=== PATIENT | female | born 1960 | race Caucasian/White ===

== ENCOUNTER → 2017-01-30 | Outpatient (CLI) | payer BC | LOC: LABNPT 12:56 | PROVIDERS: ATTEND Otolaryngology Otolaryngology/Facial Plastic Surgery | DX: H92.12 Otorrhea, left ear (principal) | CPT/HCPCS: 87070; 87186 ==

== ENCOUNTER 2018-09-19 11:00 | Outpatient (CLI) | payer BC ==
[~2018-09-19] VITALS: Ht 160 cm; Wt 59.0 kg
[2018-09-19] MEDS ORDERED: SUCR1TAB PO (11:27)
[2018-09-19] MEDS ORDERED: FLUO20TA28 PO (11:27)
[2018-09-19] MEDS ORDERED: PANT40TA3 PO (11:27)
[2018-09-19] MEDS ORDERED: TPR25T PO (11:27)
== END 2018-09-19 11:29 | disposition home or self-care (01) ==
LOC: PREOP 11:00
PROVIDERS: ATTEND Otolaryngology Otolaryngology/Facial Plastic Surgery
DX: Z01.818 Encounter for other preprocedural examination (principal)

== ENCOUNTER 2018-09-22 06:42 | Day surgery (SDC) | payer BC ==
[~2018-09-22] VITALS: Ht 160 cm; Wt 61.2 kg
[2018-09-22] VITALS (10 sets, daily range): BP systolic 82–111; BP diastolic 36–68
[~2018-09-22 06:42] MED LIST: FLUO20TA28 PO; PANT40TA3 PO; SUCR1TAB PO; TPR25T PO
[2018-09-22] MEDS ORDERED: LACTATED RINGERS 1,000 ML IV PRN (06:48)
--- NOTE | 2018-09-22 07:02 | Progress Note-Pre Operative ---
Pre-Operative Progress Note H&P Reviewed The H&P was reviewed, patient examined and no changes noted. Date Seen by Provider: September 22, 2018 Time Seen by Provider: 06:30 Date H&P Reviewed: September 22, 2018 Time H&P Reviewed: 06:30 Pre-Operative Diagnosis: JESSIE Coburn MD September 22, 2018 07:02
[2018-09-22] MEDS ORDERED: MIDAZOLAM 2 MG/2 ML (VERSED) VIAL ONE (08:01)
[2018-09-22] MEDS ORDERED: fentaNYL INJECTION 100 MCG/2 ML AMP ONE (08:01)
[2018-09-22] MEDS ORDERED: DEXAMETHASONE 10 MG/ML (DECADRON) 1 ML VIAL ONE (08:01)
[2018-09-22] MEDS ORDERED: ONDANSETRON 4 MG/2 ML (SDV) Z0FRAN ONE (08:01)
[2018-09-22] MEDS ORDERED: proPOfol 200 MG/20 ML (DIPRIVAN) VIAL IV ONE (08:01)
[2018-09-22] MEDS ORDERED: LIDOCAINE PF 2% 5 ML (XYLOCAINE) VIAL ONE (08:01)
[2018-09-22] MEDS ORDERED: SEVOFLURANE (ULTANE) 15 ML INHAL SOLN ONE (08:22)
--- NOTE | 2018-09-22 08:30 | Progress Note-Post Operative ---
Post-Operative Progess Note Surgeon (s)/Job Trainer (s) Surgeon JESSIE VINCENT MD Job Trainer n/a Pre-Operative Diagnosis Bilat CALI Post-Operative Diagnosis same Post-Op Procedure Note Date of Procedure: September 22, 2018 Name of Procedure Performed: BMT Description & Findings Description and Findings: n/a Anesthesia Type mask Estimated Blood Loss minimal Packing none. Specimen(s) collected/removed none JESSIE VINCENT MD September 22, 2018 08:30
[2018-09-22] MEDS ORDERED: APAP 325 MG/10.15 ML LIQ (TYLENOL) UDC PO PRN (08:45)
[2018-09-22] MEDS ORDERED: ONDANSETRON 4 MG/2 ML (SDV) Z0FRAN IVP PRN (08:45)
[2018-09-22] MEDS ORDERED: morphine INJ 10 MG/ML 1ML (SYR OR VIAL) IVP ONE (08:45)
[2018-09-22] MEDS ORDERED: GARAMYCIN EACH EAR (09:48)
--- NOTE | 2018-09-22 10:09 | NUR ---
Pt. prescription called into [facility] [place] at this time.
--- NOTE | 2018-09-22 16:23 | Anesthesia-General Post-Op ---
General Patient Condition Mental Status/LOC: Same as Preop Cardiovascular: Satisfactory Nausea/Vomiting: Absent Respiratory: Satisfactory Pain: Controlled Complications: Absent Post Op Complications Complications None Follow Up Care/Instructions Patient Instructions None needed. Anesthesia/Patient Condition Patient Condition Patient was seen this morning after the procedure and she was doing well, no complaints, stable vital signs, no apparent adverse anesthesia problems. GUERLINE DWYER DO September 22, 2018 16:23
== END 2018-09-22 10:10 | disposition home or self-care (01) ==
LOC: SDC 06:42
PROVIDERS: ATTEND Otolaryngology Otolaryngology/Facial Plastic Surgery
DX: H65.23 Chronic serous otitis media, bilateral (principal); R51 Headache; Z79.899 Other long term (current) drug therapy
CPT/HCPCS: 87081

== ENCOUNTER → 2019-01-23 | Outpatient (CLI) | payer BC ==
[~2019-01-23] MED LIST changes: +GARAMYCIN EACH EAR
--- NOTE | 2019-01-23 10:14 | Diagnostic Imaging Report ---
INDICATION: Right hand pain. Time of exam 10:00 a.m. FINDINGS: Three views of the right hand were obtained. Well-corticated osseous density adjacent to the ulnar styloid is noted consistent with an old ununited ulnar styloid fracture. There are radiocarpal joint degenerative changes with joint space narrowing. There is also triscaphe and first CMC joint degenerative changes. The metacarpals are intact. The phalanges are intact but no fractures are seen. No definite osseous erosive changes are seen. IMPRESSION: Chronic changes. No acute bony abnormality is detected. Dictated by: Dictated on workstation # [id number]
== END ==
LOC: RAD FS 09:58
PROVIDERS: ATTEND Nurse Practitioner
DX: M79.641 Pain in right hand (principal)
CPT/HCPCS: 73130

== ENCOUNTER → 2019-02-06 | Outpatient (CLI) | payer BC ==
--- NOTE | 2019-02-06 12:14 | Diagnostic Imaging Report ---
INDICATION: Routine screening. Comparison is made with prior mammograms from 12/02/2015 and 11/22/2014. 2-D and 3-D bilateral screening mammography was performed. The current study was also evaluated with a Computer Aided Detection (CAD) system. 3-D tomosynthesis was also performed and reviewed. FINDINGS: Both breasts are heterogeneously dense, limiting the sensitivity of mammography. There are benign calcifications bilaterally. No mass or malignant-appearing microcalcifications are seen. The axillae are unremarkable. IMPRESSION: No mammographic features suspicious for malignancy are identified. ACR BI-RADS Category 2: Benign findings. Result letter will be mailed to the patient. Note: At least 10% of breast cancer is not imaged by mammography. Dictated by: Dictated on workstation # [id number]
== END ==
LOC: RAD 11:06
PROVIDERS: ATTEND Obstetrics & Gynecology
DX: Z12.31 Encounter for screening mammogram for malignant neoplasm of breast (principal)
CPT/HCPCS: 77067

== ENCOUNTER → 2019-10-13 | Outpatient (CLI) | payer BC ==
--- NOTE | 2019-10-13 13:09 | Diagnostic Imaging Report ---
PROCEDURE: CT chest without contrast. TECHNIQUE: Multiple contiguous axial images were obtained through the chest without the use of intravenous contrast. Auto Exposure Controls were utilized during the CT exam to meet ALARA standards for radiation dose reduction. INDICATION: Lung nodule. COMPARISON: There are no prior studies available for comparison. FINDINGS: Reportedly, there is clinical concern regarding a lung nodule. If the previous exam or the previous report describing the lung nodule is available, it would be helpful for comparison. There is a small 4.8 mm noncalcified nodule in the midportion of the superior segment of the right lower lobe (axial image 78/148). This nodule has a generally benign appearance. If there is a previous exam available for comparison, it would be helpful. No other parenchymal lung mass is identified. The lungs are generally clear. There are a few small pneumatoceles in the left upper lobe and the right perihilar region. There is no evidence for failure, pneumonia, or for a pleural effusion. The heart size is within normal limits. There are no coronary artery calcifications evident. The aorta is not abnormally dilated. There is no obvious mediastinal or hilar adenopathy. The thyroid gland is unremarkable. There is no definite breast mass. The breast tissue is quite dense. The sections through the upper abdomen failed to show any sign of an acute abnormality. However, there is a fairly well-circumscribed 1.8 x 2.0 cm rounded area of low density associated with the right adrenal gland. This has a Hounsfield unit density of -16, consistent with fat. Most likely, this is a benign adenoma. The bone windows are unremarkable for a fracture or for a destructive lesion. IMPRESSION: 1. There is a small benign-appearing nodule in the right lung. Whether this is the nodule in question is not certain. If there are previous studies or the report from previous studies available for comparison, they would be helpful. 2. No other parenchymal lung mass is noted. 3. There is no sign of an acute cardiopulmonary abnormality. There are chronic pulmonary changes evident, however. 4. The nodular density associated with the right adrenal gland is most likely a benign process such as an adrenal adenoma. Dictated by: Dictated on workstation # [id number]
== END ==
LOC: RAD FS 08:58
PROVIDERS: ATTEND Family Medicine
DX: R91.1 Solitary pulmonary nodule (principal); E27.8 Other specified disorders of adrenal gland
CPT/HCPCS: 71250

== ENCOUNTER → 2019-12-07 | Outpatient (CLI) | payer BC ==
[~2019-12-07] MED LIST changes: +CATHETER FLUSH 10 ML SYR IV PRN; +HOLD METFORMIN - RECEIVED CONTRAST 20 ML VIAL IV SCH; +IOHEXOL 350 MG/ML 100 ML (OMNIPAQUE 350) VIAL IV ONE; +NS 100 ML (IVPB) BAG IV ONE
[2019-12-07 09:21] LABS: CHLORIDE 104 MMOL/L (98-107); SODIUM 136 MMOL/L (135-145)
[2019-12-07 09:22] LABS: ALANINE AMINOTRANSFERASE 13 U/L (0-55); ALBUMIN 4.1 GM/DL (3.2-4.5); ALKALINE PHOSPHATASE 81 U/L (40-136); BILIRUBIN,TOTAL 0.3 MG/DL (0.1-1.0); BUN/CREATININE RATIO 20; CALCIUM 9.3 MG/DL (8.5-10.1); CARBON DIOXIDE 24 MMOL/L (21-32); GFR ESTIMATED > 60; GLUCOSE 102 MG/DL (70-105); TOTAL PROTEIN 6.3 GM/DL (6.4-8.2)
--- NOTE | 2019-12-07 10:16 | Diagnostic Imaging Report ---
EXAMINATION: CT Abdomen and Pelvis with intravenous contrast. TECHNIQUE: Multiple contiguous axial images were obtained through the abdomen and pelvis after the uneventful administration of intravenous contrast. All CT scans use one or more of the following dose optimizing techniques: automated exposure control, MA and/or KvP adjustment based on a patient size and exam type, or iterative reconstruction. HISTORY: Right lower quadrant pain COMPARISON: None available. FINDINGS: Limited views of the lower thorax are unremarkable. The liver is normal without focal lesion. There is no biliary ductal dilation. Gallbladder is normal. Pancreas is normal. Spleen is normal. A 19 mm right adrenal nodule with low attenuation on prior CT consistent with an adenoma. The kidneys are normal. There is no hydronephrosis. Urinary bladder is normal. Visualized bowel is normal in caliber without obstruction or inflammation. There is diverticulosis without diverticulitis. There has been an appendectomy. No free fluid or air. No abdominal or pelvic lymphadenopathy. Aorta is normal in caliber without aneurysm. There are no suspicious osseus lesions. Bone island is present in the sacrum. IMPRESSION: 1. No acute abnormality in the abdomen or pelvis. Dictated by: Dictated on workstation # [id number]
== END ==
LOC: LAB FS 08:31
PROVIDERS: ATTEND Nurse Practitioner Family
DX: R10.31 Right lower quadrant pain (principal)
CPT/HCPCS: 36415; 74177; 80053

== ENCOUNTER → 2020-07-01 | Outpatient (CLI) | payer BC ==
[~2020-07-01] MED LIST changes: -CATHETER FLUSH 10 ML SYR IV PRN; -HOLD METFORMIN - RECEIVED CONTRAST 20 ML VIAL IV SCH; -IOHEXOL 350 MG/ML 100 ML (OMNIPAQUE 350) VIAL IV ONE; -NS 100 ML (IVPB) BAG IV ONE; -PANT40TA3 PO; +PANT40TA52 PO
--- NOTE | 2020-07-02 12:31 | Diagnostic Imaging Report ---
INDICATION: Routine screening. COMPARISON: 02/06/2019 and 12/02/2015. TECHNIQUE: 2D and 3D bilateral screening mammography was performed with CAD. FINDINGS: Both breasts are heterogeneously dense, limiting the sensitivity of mammography. Benign calcifications are scattered throughout both breasts. No dominant mass or malignant appearing microcalcifications are seen. The axillae are unremarkable. IMPRESSION: No mammographic features suspicious for malignancy are identified. ACR BI-RADS Category 2: Benign findings. Result letter will be mailed to the patient. Note: At least 10% of breast cancer is not imaged by mammography. Dictated by: Dictated on workstation # [id number]
== END ==
LOC: RAD 14:56
PROVIDERS: ATTEND Obstetrics & Gynecology
DX: Z12.31 Encounter for screening mammogram for malignant neoplasm of breast (principal)
CPT/HCPCS: 77063; 77067

== ENCOUNTER 2021-07-31 05:32 | Outpatient (CLI) | payer BC ==
[~2021-07-31] VITALS: Ht 160 cm; Wt 62.4 kg
[2021-07-31] MEDS ORDERED: ELET40TA PO (10:55)
== END 2021-07-31 12:58 | disposition home or self-care (01) ==
LOC: PREOP 05:32
PROVIDERS: ATTEND Surgery
DX: Z01.818 Encounter for other preprocedural examination (principal)

== ENCOUNTER 2021-08-11 08:04 | Day surgery (SDC) | payer BC ==
[~2021-08-11] VITALS: Ht 160 cm; Wt 62.4 kg
[~2021-08-11 08:04] MED LIST changes: +ELET40TA PO
[2021-08-11] MEDS ORDERED: LACTATED RINGERS 1,000 ML IV ONE (08:08)
[2021-08-11] MEDS ORDERED: LACTATED RINGERS 1,000 ML IV STA (08:10)
[2021-08-11] MEDS ORDERED: HURRICAINE EXT TUBE (BENZOCAINE) XX PRN (08:15)
[2021-08-11 08:20] VITALS: BP 121/78
--- NOTE | 2021-08-11 09:57 | Progress Note-Pre Operative ---
Pre-Operative Progress Note H&P Reviewed The H&P was reviewed, patient examined and no changes noted. Time Seen by Provider: 09:28 Date H&P Reviewed: Aug 11, 2021 Time H&P Reviewed: : Pre-Operative Diagnosis: + Cologuard, Chronic Gastritis ROSALINE DOWNING DO Aug 11, 2021 09:57
[2021-08-11] MEDS ORDERED: PROPOFOL INJECTION 50 ML IV ONE (10:21)
[2021-08-11 11:00] VITALS: BP 99/52
[2021-08-11 11:02] VITALS: BP 99/52
--- NOTE | 2021-08-11 11:03 | Progress Note-Post Operative ---
Post-Operative Progess Note Surgeon (s)/Truck Rental Clerk (s) Surgeon ROSALINE DOWNING DO Truck Rental Clerk: Zion Briggs, MSIII Pre-Operative Diagnosis + Cologuard, Chronic Gastritis Post-Operative Diagnosis Gastritis Duodenitis Esophagitis Polyps Diverticula int hemorrhoids Procedure & Operative Findings Date of Procedure 08/11/21 Procedure Performed/Findings EGD with bx Colon with hot bx PROCEDURE NOTE: After informed consent was obtained, the patient was brought to the endoscopy suite, placed in bed in left lateral decubitus position. She was administered IV sedation by the APPIAN BPM DEVELOPER who then monitored vitals the entire time, heart rate, blood pressure and pulse ox and the scope was inserted down the mouth through the esophagus into the stomach. On the way down, noted some mild esophagitis, took a picture, pushed into the stomach and noted some inflammation of the antrum. Pushed into the duodenum; which looked weird, the villi were flattened and areas looked scalloped out. Duodenum also appeared to have some inflammation and biopsy of the inflammation and of the scalloped areas were done. Pulled back and did a biopsy of the antrum, then retroflexed the scope and did not see a hiatal hernia. Then pulled the scope into the GE junction, took another picture of the esophagitis and then did a biopsy of the GE junction. Pushed the scope back into the stomach, suctioned all the air out of the stomach. At this point pulled the scope up the esophagus and out the mouth. Switched camera, switched gloves, went down below and started the colonoscopy. Pushed all the way into about 140 cm to get all the way to cecum, took a picture of the appendiceal orifice and noted the ileocecal valve. On the way in I had seen some diverticula and took a picture of them. Started to slowly withdrew the scope, insufflating to look circumferentially at the gray. Starting in the cecum, up the ascending colon where I found a polyp and did a hot biopsy. Up to the hepatic flexure and then down the transverse colon where the GI genius found a couple of polyps and removed them with hot bx. Continued to the splenic flexure, into the descending colon, down into the sigmoid. Here found another polyp and finally into the rectum where the final polyp was found and removed with two bites. Retroflexed in the rectal vault, saw some minimal internal hemorrhoids and took a picture of this. The patient tolerated the procedure and she recovered in the endoscopy suite. Anesthesia Type IV sedation by APPIAN BPM DEVELOPER Estimated Blood Loss Estimated blood loss (mL): scant Specimens/Packing Specimens Removed duodenal bx x 2 antral bx GE jxn bx Asc colon polyp transverse colon polyp sigmoid polyp rectal polyp ROSALINE DOWNING DO Aug 11, 2021 11:03
--- NOTE | 2021-08-11 11:04 | Endoscopy Discharge Instruct ---
Endo Procedure/Findings Findings 1.: Gastritis, Other Findings (duodenitis and esophagitis) 2.: Polyp 3.: Diverticulosis 4.: Internal Hemorrhoids Discharge Instructions - Activity: You might feel a little sleepy until tomorrow. This is due to the medicine you received to relax you. Until tomorrow, you should: NOT drive a car, operate machinery or power tools. NOT drink any alcoholic beverages. NOT make any important decisions or sign importortant papers. Do not return to work until tomorrow, unless otherwise instructed. Resume previous activities tomorrow. Diet: Start by taking liquids. If you tolerate liquids, advance to solid food. 1.: EGD in 1 year 2.: Colonscopy in 5 years Notify Physician - If you experience excessive bleeding, unusual abdominal pain, fever, or chest pain, contact your doctor immediately. ROSALINE DOWNING DO Aug 11, 2021 11:04
[2021-08-11 11:29] VITALS: BP 120/60
[2021-08-11 12:59] VITALS: BP 118/72
--- NOTE | 2021-08-11 13:26 | Anesthesia-General Post-Op ---
MAC Patient Condition Mental Status/LOC: Same as Preop Cardiovascular: Satisfactory Nausea/Vomiting: Absent Respiratory: Satisfactory Pain: Controlled Complications: Absent Post Op Complications Complications None Follow Up Care/Instructions Patient Instructions None needed. Anesthesiology Discharge Order Discharge Order Patient is doing well, no complaints, stable vital signs, no apparent adverse anesthesia problems. No complications reported per nursing. WILBERTO CHU CRNA Aug 11, 2021 13:26
== END 2021-08-11 12:00 | disposition home or self-care (01) ==
LOC: ENDO 08:04
PROVIDERS: ATTEND Surgery
DX: D12.2 Benign neoplasm of ascending colon (principal); D12.3 Benign neoplasm of transverse colon; D12.8 Benign neoplasm of rectum; K29.50 Unspecified chronic gastritis without bleeding; K29.80 Duodenitis without bleeding; K21.00 Gastro-esophageal reflux disease with esophagitis, without bleeding; K63.5 Polyp of colon; K62.1 Rectal polyp; K57.30 Diverticulosis of large intestine without perforation or abscess without bleeding; K64.8 Other hemorrhoids; F17.210 Nicotine dependence, cigarettes, uncomplicated; Z79.899 Other long term (current) drug therapy